=== PATIENT | female | born 1990 | race Caucasian/White ===

== ENCOUNTER 2018-09-04 00:15 | Inpatient (IN) | payer BC ==
[~2018-09-04] VITALS: Ht 162.6 cm; Wt 93.4 kg
[2018-09-04] MEDS ORDERED: OXYTOCIN/0.9 % SODIUM CHLORIDE 1,000 ML IV SCH (00:46)
[2018-09-04] MEDS ORDERED: LR 1,000 ML IV ONE (00:46)
[2018-09-04] MEDS: LR 1,000 ML IV SCH ×3 (00:55→18:59)
[2018-09-04] MEDS ORDERED: DINOPROSTONE 10 MG SUPP VG ONE (01:00)
[2018-09-04] MEDS ORDERED: NALBUPHINE HCL 10 MG/ML AMP IVP PRN (01:00)
[2018-09-04] MEDS ORDERED: AMPICILLIN SODIUM 2 GM in NS 100 ML IV ONE ×2 (01:00→11:45)
[2018-09-04] MEDS ORDERED: TERBUTALINE SULFATE 1 MG/ML VIAL SUBCUT ONE (01:00)
[2018-09-04 01:27] LABS: HEMOGLOBIN 12.8 g/dL (12.0-16.0)
[2018-09-04 01:38] LABS: HEMATOCRIT 38.3 % (36-48); MEAN CORPUSCULAR HEMOGLOBIN 30 pg (27-31); MEAN CORPUSCULAR HGB CONC 33 % (32-36); MEAN CORPUSCULAR VOLUME 91 fL (79.0-98.0); PLATELET COUNT (AUTO) 201 K/uL (130-430); RED BLOOD CELL COUNT(AUTO) 4.21 MIL/uL (4.2-6.2); RED CELL DISTRIBUTION WIDTH 13.7 % (9.0-15.0); WHITE BLOOD COUNT (AUTO) 10.8 K/uL (4.8-10.8)
[2018-09-04 01:57] VITALS: BP_SYST 123
[2018-09-04 02:04] LABS: BAND % (MANUAL) 2 % (0-6); LYMPHOCYTES % (MANUAL) 5 % (20-46)
[2018-09-04 02:05] LABS: BASOPHILS % (MANUAL) 0 % (0-2); EOSINOPHILS % (MANUAL) 1 % (0-7); MONOCYTES % (MANUAL) 0 % (0-11)
[2018-09-04] MEDS ORDERED: AMPICILLIN SODIUM 1 GM in NS 50 ML IV SCH (05:00)
[2018-09-04] MEDS ORDERED: fentaNYL CITRATE/PF 100 MCG/2 ML AMP ONE ×2 (12:15→16:14)
[2018-09-04] MEDS ORDERED: ROPIVACAINE 0.2% 100 ML ONE ×2 (12:16→16:14)
[2018-09-04] MEDS ORDERED: LR 500 ML IV ONE (12:17)
[2018-09-04] MEDS ORDERED: FENT2mCg/mL-ROPIVA0.2%/NS EPID 150 ML EP SCH (12:30)
[2018-09-04] MEDS: AMPICILLIN SODIUM 1 GM in NS 50 ML IV SCH ×3 (15:30→23:32)
[2018-09-05] MEDS ORDERED: fentaNYL CITRATE/PF 100 MCG/2 ML AMP ONE (02:16)
[2018-09-05] MEDS ORDERED: ROPIVACAINE 0.2% 100 ML ONE (02:16)
[2018-09-05] MEDS: AMPICILLIN SODIUM 1 GM in NS 50 ML IV SCH ×2 (03:29→08:00)
[2018-09-05] MEDS: LR 1,000 ML IV SCH (03:29)
[2018-09-05] MEDS ORDERED: LR 1,000 ML IV ONE (09:46)
[2018-09-05] MEDS ORDERED: CEFAZOLIN 2 GM IVPB PREMIX 50 ML IV ONE ×2 (09:53→10:00)
[2018-09-05] MEDS ORDERED: LR 1,000 ML IV.SOLN IV ONE (09:58)
[2018-09-05] MEDS ORDERED: BUPIVACAINE /PF 0.25% 30 ML VIAL INJ ONE (09:58)
[2018-09-05] MEDS ORDERED: MIDAZOLAM HCL 5 MG/5 ML VIAL IVP ONE (09:58)
[2018-09-05] MEDS ORDERED: KETOROLAC TROMETHAMINE 30 MG VIAL IVP ONE (09:58)
[2018-09-05] MEDS ORDERED: NS IRRIG SOLN 1000 ML IR ONE (09:58)
[2018-09-05] MEDS ORDERED: MORPHINE SULFATE 10MG/10ML PF AMP EP ONE (09:58)
[2018-09-05] MEDS ORDERED: PROPOFOL 200MG/ 20ML VIAL (DIPRIVAN) IV ONE (09:58)
[2018-09-05] MEDS ORDERED: NALOXONE HCL 0.4 MG/ML AMP (NARCAN) IVP PRN ×2 (11:00)
[2018-09-05] MEDS ORDERED: NALBUPHINE HCL 10 MG/ML AMP IVP PRN (11:00)
[2018-09-05] MEDS ORDERED: MORPHINE SULFATE 10MG/10ML PF AMP EP SCH (11:00)
[2018-09-05] MEDS ORDERED: ONDANSETRON HCL 4 MG/2 ML VIAL IVP PRN (11:00)
[2018-09-05] MEDS ORDERED: KETOROLAC TROMETHAMINE 60 MG/2 ML VIAL IM PRN (11:00)
[2018-09-05] MEDS ORDERED: fentaNYL CITRATE/PF 100 MCG/2 ML AMP IVP PRN ×2 (11:00)
[2018-09-05] MEDS ORDERED: DIPHENHYDRAMINE INJ 50 MG/ML VIAL IVP PRN (11:00)
[2018-09-05] MEDS ORDERED: OXYTOCIN/0.9 % SODIUM CHLORIDE 1,000 ML IV ONE (11:09)
[2018-09-05] MEDS ORDERED: LR 1,000 ML IV SCH (11:09)
[2018-09-05] MEDS ORDERED: LANOLIN 7 GM OINT. TP PRN (11:15)
[2018-09-05] MEDS ORDERED: RHO(D) IMMUNE GLOBULIN/MALTOSE 1500 UNITS/1.3 ML (WINHRO) IM PRN (11:15)
[2018-09-05] MEDS ORDERED: MEASLES,MUMPS&RUBELLA VACC/PF 12500 UNIT/0.5 ML VIAL SUBQ PRN (11:15)
[2018-09-05] MEDS ORDERED: OXYCODONE/ACETAMINOPHEN 5-325 TABLET PO PRN (11:15)
[2018-09-05] MEDS ORDERED: ANUSOL 1 EA SUPP.RECT (PREPARATION H) RC PRN (11:15)
[2018-09-05] MEDS ORDERED: BISACODYL 10 MG/SUPPOSITORY RC PRN (11:15)
[2018-09-05] MEDS ORDERED: SENNOSIDES/DOCUSATE SODIUM 1 TAB TABLET(SENOKOT-S) PO PRN (11:15)
[2018-09-05 11:33] VITALS: BP_SYST 141
[2018-09-05] MEDS ORDERED: TEMAZEPAM 15 MG CAPSULE PO PRN (21:00)
[2018-09-06] MEDS: IBUPROFEN 600 MG TABLET PO SCH ×4 (05:34→23:40)
[2018-09-06 06:48] LABS: BASOPHILS % (AUTO) 0.2 % (0.0-2.0); EOSINOPHILS # (AUTO) 0.2 K/uL (0.0-0.4); EOSINOPHILS % (AUTO) 1.5 % (0.0-4.0); HEMATOCRIT 30.5 % (36-48); HEMOGLOBIN 10.1 g/dL (12.0-16.0); LYMPHOCYTES # (AUTO) 1.4 K/uL (1.0-5.5); LYMPHOCYTES % (AUTO) 12.3 % (20.5-51.5); MEAN CORPUSCULAR HEMOGLOBIN 30 pg (27-31); MEAN CORPUSCULAR HGB CONC 33 % (32-36); MEAN CORPUSCULAR VOLUME 91 fL (79.0-98.0); MONOCYTES # (AUTO) 0.8 K/uL (0.0-1.0); MONOCYTES % (AUTO) 6.7 % (1.7-9.3); NEUTROPHILS % (AUTO) 79.3 % (40.0-70.0); PLATELET COUNT (AUTO) 162 K/uL (130-430); RED BLOOD CELL COUNT(AUTO) 3.34 MIL/uL (4.2-6.2); RED CELL DISTRIBUTION WIDTH 13.7 % (9.0-15.0); WHITE BLOOD COUNT (AUTO) 11.4 K/uL (4.8-10.8)
[2018-09-06] MEDS: DOCUSATE SODIUM 100 MG CAPSULE PO PRN (08:02)
[2018-09-06] MEDS: OXYCODONE/ACETAMINOPHEN 5-325 TABLET PO PRN ×2 (08:03→22:50)
[2018-09-06] MEDS: SIMETHICONE 80 MG TAB.CHEW PO PRN (22:50)
[2018-09-07] MEDS: IBUPROFEN 600 MG TABLET PO SCH ×2 (05:37→11:45)
[2018-09-07] MEDS: SIMETHICONE 80 MG TAB.CHEW PO PRN (11:45)
[2018-09-07] MEDS: DOCUSATE SODIUM 100 MG CAPSULE PO PRN (11:46)
== END 2018-09-07 13:50 | disposition home or self-care (01) | DRG 788 ==
LOC: SPU 00:15
PROVIDERS: ADMIT Obstetrics & Gynecology; ATTEND Obstetrics & Gynecology
PROC: 10D00Z1 Extraction of Products of Conception, Low, Open Approach (ICD-10-PCS; principal; 2018-09-05 10:00)
DX: O62.1 Secondary uterine inertia (principal); O77.0 Labor and delivery complicated by meconium in amniotic fluid; O61.9 Failed induction of labor, unspecified; O99.824 Streptococcus B carrier state complicating childbirth; Z37.0 Single live birth; Z3A.40 40 weeks gestation of pregnancy
CPT/HCPCS: 36415; 81002-TC; 85007; 85025; 85027; 86592; 86886; 86900; 86901; 94760; J0290; J0690; J1885; J2250; J2274; J2300; J2590; J2704; J2795; J3010; J3490; J7120